=== PATIENT | male | born 1985 | race Asian ===

== ENCOUNTER 2019-04-10 21:31 | Emergency (ER) | payer OTHER ==
[2019-04-10 21:53] VITALS: BP 173/117
== END 2019-04-11 00:27 | disposition left against medical advice (07) ==
LOC: ED 21:31
DX: M54.9 Dorsalgia, unspecified (principal); Z53.21 Procedure and treatment not carried out due to patient leaving prior to being seen by health care provider
CPT/HCPCS: 99282